=== PATIENT | male | born 2000 | race Caucasian/White ===

== ENCOUNTER 2024-05-12 14:43 | Emergency (ER) | payer SELFPAY ==
--- NOTE | ~2024-05-12 | US_ITS ---
CLINICAL HISTORY: R scrotal pain US Scrotum with Doppler Comparison: CT/SR - CT ABDOMEN PELVIS WO IV CON - 05/12/24 16:20 EST Findings: Right testicle normal size and echotexture, 4.0 x 2.5 x 3.5 cm. Left testicle normal size and echotexture, 3.8 x 2.1 x 2.9 cm. Color Doppler and arterial/venous spectral tracings of both testicles within normal limits. Mildly enlarged bilateral epididymis with slightly increased vascularity. Bilateral epididymal head cysts. Left varicocele. No hydroceles. IMPRESSION: No evidence of torsion. Mildly enlarged bilateral epididymis with slightly increased vascularity, possibly epididymitis. This document has been electronically signed by: Yu Burroughs MD on 05/12/2024 22:32:42
--- NOTE | ~2024-05-12 | CT_ITS ---
EXAMINATION: CT ABDOMEN AND PELVIS WITHOUT CONTRAST CLINICAL INFORMATION: Right flank pain COMPARISON: None available. TECHNIQUE: Multidetector volumetric imaging was performed from the superior aspect of the liver through the pubic symphysis. Sagittal and coronal reformatted images were obtained on the technologist's workstation. This CT examination was performed using dose optimization techniques as appropriate, variously including the following: *Automated exposure control *Adjustment of mA and/or kV according to patient size (this includes techniques or standardized protocols for targeted exams where dose is matched to indication/reason for exam; i.e. extremities or head) *Use of iterative reconstruction technique DLP 812 FINDINGS: LUNG BASES: The visualized lung bases are unremarkable. LIVER, GALLBLADDER, AND BILIARY TREE: The liver is normal in size, shape, and attenuation. No focal hepatic lesion or biliary ductal dilatation is present. The gallbladder is unremarkable with no evidence of radiopaque gallstones, gallbladder wall thickening, or obvious pericholecystic inflammatory changes. PANCREAS: Unremarkable. SPLEEN: Unremarkable. ADRENAL GLANDS: Unremarkable. KIDNEYS AND URETERS: The kidneys are normal in size, shape, and attenuation. No hydronephrosis, hydroureter, or calculi seen. No perinephric stranding. BLADDER: Unremarkable. GASTROINTESTINAL TRACT: There is scattered stool and gas seen in colon without distention. The small bowel loops are normal caliber. Appendix is not visualized. There is no free air or free fluid. ABDOMINAL WALL: No significant hernia is appreciated. LYMPH NODES: Normal. VASCULAR: Unremarkable. PELVIC VISCERA: Unremarkable. OSSEOUS STRUCTURES: No aggressive lytic or sclerotic process seen. CT/CT abdomen pelvis wo IV con IMPRESSION: No acute intra-abdominal process seen. Mild constipation. Normal appendix. No radiopaque urolith. Fleischner guidelines were followed. Electronically signed by: Himanshu Gibbs MD 05/12/2024 04:45 PM EST
[2024-05-12 15:29] VITALS: BP 160/104; PULSE 102; RESP 16; TEMP 36.4; O2SAT 99; BMI 38.2
--- NOTE | 2024-05-12 15:30 | ED.GENADULT ---
HPI - General Adult General Chief complaint: Abdominal Pain Stated complaint: flu symptons back pain Time Seen by Provider: 05/12/24 20:36 Source: patient Mode of arrival: ambulatory Limitations: no limitations History of Present Illness ED Provider: EMMANUEL MARTINES narrative: 23 yo male with prior hx of ETOH abuse, epidydimitis in past here with c/o R lower abdominal pain with some testicular pain symptoms radiate to the back. He notes this has been going on for several days now. He notes worse with some movements and he is having a hard time urination. NO rash noted, no n/v/d fevers. He notes he stopped drinking recently 2 months ago and is doing better. MD complaint: abd groin pain Onset (ago): day(s) (several) Location: abdomen and pelvis Radiation: non-radiation Severity: moderate Quality: aching Pain Consistency: intermittent Relieving factors: none Exacerbating factors: movement Associated symptoms: denies other symptoms Treatments prior to arrival: none Related Data Previous Rx's ?Medication ?Instructions ?Recorded levofloxacin 500 mg tablet 500 mg PO DAILY #9 tabs 05/12/24 Allergies Allergy/AdvReac Type Severity Reaction Status Date / Time amoxicillin Allergy Unknown Verified 05/12/24 15:32 Beta-Blockers Allergy Unknown Verified 05/12/24 15:32 (Beta-Adrenergic Bloc Penicillins Allergy Unknown Verified 05/12/24 15:32 Review of Systems Review of Systems: Constitutional : No Weight loss, No Fever, No Chills ENT/Mouth : No sore throat, No Rhinorrhea Eyes: No Swelling, No Redness Cardiovascular : No Chest Pain, No SOB, No Edema Respiratory : No Cough, No Sputum, No Wheezing Gastrointestinal : no Nausea, no Vomiting, no Diarrhea, positive abdominal Pain, No Hematochezia, No Melena Genitourinary : pos Dysuria, No Urinary Frequency, No Hematuria, No Urgency Musculoskeletal : No joint pain, No Myalgias, No Joint Swelling Skin : No Skin Lesions, No rash Neuro : No Weakness, No Numbness, No Dizziness, No Headache Psych : No Anxiety/Panic, No Depression Heme/Lymph: No Bruising, No Lymphadenopathy Endocrine : No Polyuria, No Polydipsia All other systems reviewed and are negative. [facility] Past Medical History Attestation statement: The following information was validated with the patient. Source: old records reviewed Medical History Acute epididymitis Social History Social History (Updated 05/12/24 @ 20:47 by Angelica Cabrera DO) Patient Tobacco Use Status: Tobacco use Unknown Do you have a plan to hurt others: No Plan Physical Exam ED Vital Signs: Vital Signs - 24 hr 05/12/24 15:29 05/12/24 20:16 Temperature 97.6 F 98.1 F Pulse Rate 102 H 96 Respiratory Rate 16 18 Blood Pressure 160/104 H 148/76 H Pulse Oximetry 99 98 Oxygen Delivery Method Room Air Room Air BMI result Body Mass Index 38.2 Appearance: Alert. Oriented X3. No acute distress. Eyes: Pupils equal, round and reactive to light. ENT: Pharynx normal. Neck: Normal inspection. Neck supple. CVS: Normal heart rate and rhythm. Pulses normal. Respiratory: No respiratory distress. Breath sounds normal. Abdomen: Soft and very mild R groin ttp no mass or hernia felt Skin: Skin warm and dry. Normal skin color. Normal skin turgor. Extremities: No lower extremity edema. No calf ttp Neuro: Oriented X 3. No motor deficit. No sensory deficit. CN2-12 intact Course Course Course Narrative: This is a rapid medical exam performed by Mellissa Pike NP: Additional HPI, ROS, PE not included below will be deferred to primary provider. Patient is a 23-year-old male presenting with complaint of RLQ and right flank pain for the past few days. Decreased appetite. Difficulty urinating and establishing an erection, pain radiates to right testicle. Currently on clinda for a dental infection. Plan: labs, UA, CT Reevaluation(s) Reevaluation #1: I Inocencia Vilchis PA-C have accepted care of the patient at signed out pending imaging and final disposition I have independently reviewed the following tests: Ultrasound scrotal contents:IMPRESSION: No evidence of torsion. Mildly enlarged bilateral epididymis with slightly increased vascularity, possibly epididymitis. This document has been electronically signed by: Yu Burroughs MD on 05/12/2024 22:32:42 he denies risk for STI, will tx with levaquin I was preparing his discharge paperwork, apparently he left the waiting room without completing treatment Medical Decision Making Medical Decision Making MDM Narrative: 23 yo male with right lower groin and testicular pain denies discharge or rash, has mild dysuria at this time will need basic labs, CT scan for renal colic, US to evaluate for torsion/epidymitis. He is not toxic and tolerating PO, at this time denies any concerns for STI Differential Diagnosis Differential Diagnoses: The differential diagnosis associated with the presentation includes epidydimitis, hernia, groin strain Admission/Observation Consideration of admission/observation: Escalation of care including admission/observation considered signed out to Mame CASTRO pending US Lab Data MDM Lab Attestation statement: I reviewed the patient's lab results. 05/12/24 15:53 05/12/24 15:53 Labs: Lab Results 05/12/24 Range/Units 15:53 WBC 9.0 (4.8-10.8) X10*3/uL RBC 5.93 H (4.60-5.80) X10*6/uL Hgb 17.5 (14.0-18.0) g/dl Hct 50.4 (42.0-52.0) % MCV 85.0 (80.0-98.0) fL MCH 29.5 (27.0-33.0) pg MCHC 34.7 (31.0-36.0) g/dl RDW 12.5 (11.0-16.0) % Plt Count 274 (160-400) X10*3/uL MPV 10.3 (9.4-12.4) fL Immature Gran % (Auto) 0.3 (0.0-0.4) % Neut % (Auto) 61.7 (45-73) % Lymph % (Auto) 30.1 (20-40) % [place] % (Auto) 5.8 (2-11) % Eos % (Auto) 1.3 (0-4) % Baso % (Auto) 0.8 (0-2) % Lymph # (Auto) 2.7 (1.2-4.9) X10*3/uL [place] # (Auto) 0.5 (0.1-1.2) X10*3/uL Eos # (Auto) 0.1 (0.0-0.4) X10*3/uL Baso # (Auto) 0.1 (0.0-0.2) X10*3/uL Abs Immat Gran (auto) 0.03 (0.00-0.03) X10*3/uL Absolute Neuts (auto) 5.5 (2.0-8.3) x10*3/uL Absolute Nucleated RBC 0.000 (0.0-0.012) X10*3/uL Nucleated RBC % (auto) 0.0 (0.0-0.2) /100WBC Sodium 141 (135-145) mmol/L Potassium 3.9 (3.3-5.1) mmol/L Chloride 104 (96-108) mmol/L Carbon Dioxide 28 (22-29) mmol/L Anion Gap 13 (12-20) BUN 9 (9-16) mg/dL Creatinine 0.92 (0.5-1.4) mg/dL Estim Creat Clear Calc 159.2 Estimated GFR > 60 Random Glucose 126 H (60-115) mg/dL Calcium 10.0 (8.4-10.2) mg/dL Total Bilirubin 0.7 (0.0-1.0) mg/dL AST 90 H (5-37) U/L ALT 67 H (0-40) U/L Alkaline Phosphatase 127 H (39-117) U/L Total Protein 8.8 H (6.5-8.0) g/dL Albumin 5.2 H (3.5-5.0) g/dL Urine Color Yellow Urine Appearance Clear Urine pH 7.0 (5.0-9.0) Ur Specific [place] 1.025 (1.005-1.025) Urine Protein Trace (Neg-Trace) mg/dL Urine Glucose (UA) Negative (Negative) mg/dL Urine Ketones Negative (Negative) mg/dL Urine Blood Negative (Negative) Urine Nitrite Negative (Negative) Ur Leukocyte Esterase Negative (Negative) Independent Interpretation I performed an independent interpretation of an: Ultrasound and CT Scan (normal ) Radiology Impression Discussion of test interpretation with radiology: I have reviewed the radiologist's reading. External Record Review External record reviewed: Outpatient record Prescription Management I considered prescription management with: Other Discharge Plan Discharge Clinical Impression: Right groin pain, Epididymitis Patient Disposition: Left W/O Completing Treatment Instructions: Epididymitis (ED), Abdominal Pain (ED) Additional Instructions: labs other than mild bump in LFTS CT scan negative no acute findings The ultrasound of the scrotal contents reveals epididymitis. See home care instructions. Take the Levaquin as directed this is an antibiotic. Follow up with your primary care provider as needed. Prescriptions: New levofloxacin 500 mg tablet 500 mg PO DAILY Qty: 9 0RF Print Language: Macedonian
[2024-05-12 15:57] LABS: MANUAL DIFF FLAG NO
[2024-05-12 15:59] LABS: Appearance Urine Clear; Basophils Absolute Auto 0.1 X10*3/uL (0.0-0.2); Basophils Percent Auto 0.8 % (0-2); Color Urine Yellow; Eosinophils Absolute Auto 0.1 X10*3/uL (0.0-0.4); Eosinophils Percent Auto 1.3 % (0-4); Glucose Urine UA Negative (Negative); Hematocrit 50.4 % (42.0-52.0); Hemoglobin 17.5 g/dl (14.0-18.0); Imm Gran Abs Auto 0.03 X10*3/uL (0.00-0.03); Imm Gran Pct Auto 0.3 % (0.0-0.4); Leukocyte Esterase Urine Negative (Negative); Lymphocytes Absolute Auto 2.7 X10*3/uL (1.2-4.9); Lymphocytes Percent Auto 30.1 % (20-40); Mean Corpuscular HGB Conc 34.7 g/dl (31.0-36.0); Mean Corpuscular Hemoglobin 29.5 pg (27.0-33.0); Mean Platelet Volume 10.3 fL (9.4-12.4); Monocytes Absolute Auto 0.5 X10*3/uL (0.1-1.2); Monocytes Percent Auto 5.8 % (2-11); Neutrophils Absolute Auto 5.5 x10*3/uL (2.0-8.3); Neutrophils Percent Auto 61.7 % (45-73); Nitrite Urine Negative (Negative); Platelet Count 274 X10*3/uL (160-400); Red Blood Count 5.93 X10*6/uL (4.60-5.80); Red Cell Distribution Width 12.5 % (11.0-16.0); Specific Gravity - Urine 1.025 (1.005-1.025); Urine Blood Negative (Negative); Urine Ketones Negative (Negative); Urine Protein Trace mg/dL (Neg-Trace)
[2024-05-12 16:12] LABS: Alanine Aminotransferase 67 U/L (0-40); Albumin Level 5.2 g/dL (3.5-5.0); Alkaline Phosphatase 127 U/L (39-117); Anion Gap 13 (12-20); Aspartate Amino Transferase 90 U/L (5-37); Bilirubin Total 0.7 mg/dL (0.0-1.0); Blood Urea Nitrogen 9 mg/dL (9-16); Carbon Dioxide 28 mmol/L (22-29); Chloride 104 mmol/L (96-108); Creatinine Clr Calc Pharmacy 159.2; Estimated Glomerular Filt Rate > 60; Glucose Random 126 mg/dL (60-115); Potassium 3.9 mmol/L (3.3-5.1); Sodium 141 mmol/L (135-145); Total Protein 8.8 g/dL (6.5-8.0)
[2024-05-12 20:16] VITALS: BP 148/76; PULSE 96; RESP 18; TEMP 36.7; O2SAT 98
--- NOTE | 2024-05-12 23:45 | MHC.EDTECH ---
patient name called in waiting room at [phone] with no answer
== END 2024-05-12 23:45 | disposition left against medical advice (07) ==
PROVIDERS: Registered Nurse Emergency; Emergency Provider Emergency Medicine
DX: N45.1 Epididymitis (principal); R10.31 Right lower quadrant pain; N50.811 Right testicular pain
CPT/HCPCS: 36415; 74176; 76870; 80053; 81003; 85025; 93975; 99282; 99283; 99284

== ENCOUNTER → 2024-05-12 15:32 | Outpatient (BNV) | payer SELFPAY | PROVIDERS: Visit Provider Radiology Diagnostic Radiology | DX: N45.1 Epididymitis (principal) | CPT/HCPCS: 74176; 76870; 93975 ==